=== PATIENT | male | born 1975 | race Caucasian/White ===

== ENCOUNTER 2018-07-12 10:51 | Emergency (ER) | payer OTHER ==
[2018-07-12] MEDS: CLINDAMYCIN 900 MG in APPROPRIATE DILUENT 1 EA IV (11:30)
== END 2018-07-12 12:44 | disposition home or self-care (01) ==
LOC: M ED 10:51
DX: L03.114 Cellulitis of left upper limb (principal); Z88.8 Allergy status to other drugs, medicaments and biological substances; Z79.899 Other long term (current) drug therapy
CPT/HCPCS: 96365

== ENCOUNTER 2025-07-15 10:34 | Emergency (ER) | payer OTHER ==
[~2025-07-15] VITALS: Ht 170.2 cm; Wt 95.5 kg
[~2025-07-15 10:34] MED LIST: CEPH500C PO; CLIN150C17 PO; HYDR-3715 PO; NORC1TAB7 PO; OMEP40CA4 PO
[2025-07-15] MEDS ORDERED: ERYT5OIN25 (10:53)
[2025-07-15] MEDS: TETRACAINE 0.5% OPHTH SOLN 4ML OS ONE (13:10)
[2025-07-15] MEDS: ACETAMINOPHEN *IV* 1,000 MG in IV 1 EA IV ONE (13:15)
[2025-07-15 13:27] LABS: BASO # 0.0 10^3/uL (0.0-0.2); BASO % 0.4 % (0.0-1.0); EOS # 0.1 10^3/uL (0.0-0.5); EOS % 2.3 % (0.0-3.0); LYMPH # 1.6 10^3/uL (1.5-5.0); LYMPH % 32.6 % (24.0-44.0); MONO # 0.4 10^3/uL (0.0-0.8); MONO % 8.0 % (2.0-8.0); NEUTROPHILS # 2.8 10^3/uL (1.5-8.5); NEUTROPHILS % 56.3 % (36.0-66.0); PLATELET COUNT, AUTOMATED 253 10^3/uL (150-450)
[2025-07-15 13:48] LABS: C REACTIVE PROTEIN QUANTITATIV < 0.50 MG/DL (<1.0); CALCIUM LEVEL 9.2 MG/DL (8.5-10.1); CARBON DIOXIDE LEVEL 29 MMOL/L (20-31); CHLORIDE LEVEL 103 MMOL/L (98-107); CREATININE FOR GFR 1.16 MG/DL (0.70-1.30); GLOMERULAR FILTRATION RATE 76.7 (>56); POTASSIUM SERUM 4.0 MMOL/L (3.5-5.1); SODIUM LEVEL 141 MMOL/L (136-145)
[2025-07-15] MEDS ORDERED: ISOVUE-370 76% 100 ML VIAL As Ordered ONE (13:59)
[2025-07-15] MEDS ORDERED: OLOP2.5D3 OS (15:14)
[2025-07-15] MEDS ORDERED: ACUL0.5S OS (15:19)
[2025-07-15 15:20] VITALS: BP 135/85; TEMP 96.2; O2SAT 100
== END 2025-07-15 15:20 | disposition home or self-care (01) ==
LOC: M ED 10:34
DX: H10.32 Unspecified acute conjunctivitis, left eye (principal); I10 Essential (primary) hypertension; Z88.6 Allergy status to analgesic agent; Z79.2 Long term (current) use of antibiotics; Z79.899 Other long term (current) drug therapy; Z79.1 Long term (current) use of non-steroidal anti-inflammatories (NSAID)
CPT/HCPCS: 70450; 70481; 80048; 85025; 85652; 86140; 96365; 99284; J0131; Q9967